=== PATIENT | male | born 1970 | race Caucasian/White ===

== ENCOUNTER 2020-10-10 20:49 | Emergency (ER) | payer BC, SELFPAY ==
--- NOTE | ~2020-10-10 | CT_ITS ---
EXAMINATION: CTA chest DATE: 10/10/2020 22:42 INDICATION: Left chest pain. TECHNIQUE: Computed tomographic angiography (CTA) of the chest was performed with 100 mL Omnipaque-35 0 intravenous contrast. Automated exposure control and iterative reconstruction technique were employ ed. The dose-length product was 731.74 mGy-cm. Maximum intensity projection 3D-reconstructions of the aorta and other arteries were constructed by the technologist on a separate workstation. COMPARISON: None. FINDINGS: There is mild scarring at the lung apices. No pleural effusion. The heart size is normal. N o pericardial effusion. There is a 10 mm cyst in left kidney. There is a small sliding hiatal hernia. Thoracic aorta is normal. There is mild thoracic spondylosis. IMPRESSION: 1. Normal aorta. 2. Small sliding hiatal hernia. Reviewed, dictated and finalized at location A.
--- NOTE | ~2020-10-10 | XR_ITS ---
EXAMINATION: XR chest 2V DATE: 10/10/2020 21:28 INDICATION: Left chest pain radiating to the left arm. TECHNIQUE: Frontal and lateral views of the chest were obtained on 3 radiographs. COMPARISON: None. FINDINGS: There is no pneumonia, pleural effusion, or pneumothorax. The heart size is normal. IMPRESSION: 1. No acute cardiopulmonary disease. Reviewed, dictated and finalized at location A.
--- NOTE | 2020-10-10 21:02 | ECG_ITS ---
Measurements Intervals [place] Rate: 72 P: 52 ME: 160 QRS: 35 QRSD: 109 T: 37 QT: 389 QTc: 426 Interpretive Statements SINUS RHYTHM BASELINE ARTIFACT- I, II, AVR NORMAL ECG Electronically Signed On 10-11-2020 8:04:13 CDT by Juan Hutchins D.O.
[2020-10-10 21:23] VITALS: BP 130/79; PULSE 71; RESP 20; TEMP 36.7; O2SAT 100
[2020-10-10 21:34] LABS: Basophils Absolute Auto 0.05 K/mm3 (0.00-0.10); Basophils Percent Auto 0.8 % (0.0-1.0); Eosinophils Absolute Auto 0.12 K/mm3 (0.02-0.50); Hematocrit 44.1 % (40.0-54.0); Hemoglobin 14.8 g/dL (14.0-18.0); Immature Granulocyte Absolute 0.02 K/mm3 (0.00-0.00); Immature Granulocyte Percent A 0.3 % (0.0-0.0); Lymphocytes Percent Auto 21.9 % (18.0-42.0); Mean Corpuscular HGB Conc 33.6 g/dL (32.0-36.0); Mean Corpuscular Hemoglobin 29.2 pg (27.0-31.0); Mean Corpuscular Volume 87.2 fL (78.0-102.0); Mean Platelet Volume 9.2 fl (8.7-11.0); Monocytes Absolute Auto 0.49 K/mm3 (0.10-0.90); Monocytes Percent Auto 8.3 % (2.0-11.0); Neutrophils Percent Auto 66.7 % (50.0-70.0); Platelet Count Result 261 K/mm3 (150-420); Red Blood Count 5.06 M/mm3 (4.70-6.10); Red Cell Distribution Width 12.1 % (11.6-14.4); White Blood Count 5.9 K/mm3 (4.8-10.8)
[2020-10-10 21:39] VITALS: PULSE 71
[2020-10-10 21:47] LABS: D Dimer 0.19 mg/L (0.19-0.50)
[2020-10-10 21:58] LABS: Alanine Aminotransferase 22 U/L (16-63); Albumin Level 4.2 g/dL (3.4-5.0); Alkaline Phosphatase 58 U/L (46-116); Anion Gap 9 mmol/L (8-16); Aspartate Amino Transferase 13 U/L (15-37); Bilirubin,Total 0.6 mg/dL (0.00-1.00); Blood Urea Nitrogen 12 mg/dL (7-18); Carbon Dioxide 28 mmol/L (21-32); Chloride 102 mmol/L (98-108); Estimated CRCL calculation 80 ml/min; Estimated Glomerular Filt Rate > 60; Glucose 96 mg/dL (70-99); Osmolality Calculated 287 mOsm/kg (285-295); Potassium 3.5 mmol/L (3.5-5.1); Sodium 139 mmol/L (136-145); Total Protein 7.8 g/dL (6.4-8.2); Troponin I 4.3 ng/L (0.00-60.4)
[2020-10-10 21:59] LABS: Magnesium 2.1 mg/dL (1.8-2.4); NT Pro B Type Natriuretic Pept 74 pg/mL (0-125)
[2020-10-10] MEDS: ALPRAZolam (*CRX) 0.5 MG TABLET PO (22:06)
--- NOTE | 2020-10-10 22:21 | PC.NURSE ---
[id number] pt ambulated to bathroom without difficulty no dizziness or lightheadedness pt christina well
[2020-10-10] MEDS: POTASSIUM BICARBONATE 25 MEQ TABEF 50 MEQ PO (22:26)
--- NOTE | 2020-10-10 22:27 | ED.CHESTPAIN ---
HPI - Chest Pain General Chief Complaint: Chest Pain Stated Complaint: AMB Time Seen by Provider: 10/10/20 21:30 Source: patient and family Mode of arrival: ambulatory Limitations: no limitations History of Present Illness HPI narrative: Patient comes in after stating he had felt his heart racing at home when he was in the shower. The heart racing lasted about 3-5 minutes and then this stopped. He lay down after this and felt better. He thought about this and decided to come in. He had some chest heaviness at the time of the palpitations. This lasted only briefly. It was associated with anxiety. Chest discomfort is described as moderately severe more like a heaviness on his chest, lasting about 5 minutes. This spontaneously resolved without intervention. No radiation of discomfort. This was not associated with shortness of breath, nausea or vomiting, or any diaphoresis. No other associated signs or symptoms. MD complaint: chest heaviness Related Data Home Medications Medication Instructions Recorded Confirmed esomeprazole magnesium [Nexium] 20 mg PO DAILY 10/10/20 10/10/20 multivitamin [A To Z Multivitamin] 1 tablet PO DAILY 10/10/20 10/10/20 Allergies Allergy/AdvReac Type Severity Reaction Status Date / Time No Known Allergies Allergy Verified 10/10/20 21:40 Review of Systems Constitutional: Constitutional: Reports no additional constitutional complaints Eyes: Eyes: Reports no additional eye complaints ENT: Reports system reviewed and no additional complaints, except as documented Cardiovascular: Cardiovascular: Reports no additional cardiovascular complaints Respiratory: Respiratory: Reports no additional respiratory complaints Gastrointestinal: Gastrointestinal: Reports no additional gastrointestinal complaints Genitourinary: Genitourinary: Reports no additional male genitourinary complaints Musculoskeletal: Musculoskeletal: Reports no additional musculoskeletal complaints Integumentary/Breasts: Skin/Breast: Reports system reviewed and no additional complaints, except as docu Neurologic: Reports system reviewed and no additional complaints, except as documented Psychiatric: Psychiatric: Reports no additional psychiatric complaints Endocrine: Endocrine: Reports no additional endocrine complaints Hematologic/Lymphatic: Hematologic/Lymphatic: Reports no additional hematologic/lymphatic complaints Allergic/Immunologic: Allergic/Immunologic: Reports no additional allergic/immunologic complaints [facility] Past Medical History Medical History (Updated 10/11/20 @ 01:02 by Mauri Singh MD) Anxiety disorder GERD (gastroesophageal reflux disease) Surgical History Surgical History (Updated 10/11/20 @ 01:02 by Mauri Singh MD) History of tonsillectomy Family History Family History (Updated 10/11/20 @ 01:03 by Mauri Singh MD) Father Lung cancer Social History Social History (Updated 10/11/20 @ 01:05 by Mauri Singh MD) Smokeless tobacco user: chewing tobacco Alcohol use details: beer daily, not in excess Substance use: never Living arrangements: with family Additional occupation/education comments: 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 Gender identity (if verbalized by the patient): Male Sexual Orientation (if Verbalized by the Patient): Straight or Heterosexual Exam Const: General: healthy appearing and no acute distress Orientation/consciousness: patient oriented x3 HENMT: Head: normal to inspection Ears: external ears normal and TM's normal bilaterally General nose exam: Normal external nose present Mouth: Yes Normal oral and palatal mucosa present Throat: posterior oropharynx normal Eyes: Conjunctivae: conjunctivae normal Neck: Neck: normal visual inspection and no lymphadenopathy Chest: Chest palpation & inspection: normal inspection of the chest Resp: Effort & Inspection: normal respiratory effort Auscultation: clear to a
--- NOTE | 2020-10-10 22:30 | PC.NURSE ---
Pt. resting, report received. VSS, ERP in to discuss testing and orders for CT obtained.
[2020-10-11 00:53] LABS: Troponin I 7.4 ng/L (0.00-60.4)
[2020-10-11 00:57] VITALS: BP 122/77; PULSE 67; RESP 20; O2SAT 100
== END 2020-10-11 01:01 | disposition home or self-care (01) ==
PROVIDERS: Emergency Provider Emergency Medicine; PCP Family Medicine
DX: R07.89 Other chest pain (principal)
CPT/HCPCS: 36415; 71046; 71275; 80053; 83735; 83880; 84484; 85025; 85380; 93005; 99283; 99284; A9270; Q9967

== ENCOUNTER 2020-10-12 09:19 | Emergency (ER) | payer BC, SELFPAY ==
[2020-10-12 09:20] VITALS: BP 153/93; PULSE 77; RESP 20; TEMP 36.6; O2SAT 100
--- NOTE | 2020-10-12 09:24 | ED.EYEPROB ---
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 Patient admits to increased stress level, nonsmoker and no significant heart disease in his family. Related Data Home Medications Medication Instructions Recorded Confirmed esomeprazole magnesium [Nexium] 20 mg PO DAILY 10/10/20 10/12/20 multivitamin [A To Z Multivitamin] 1 tablet PO DAILY 10/10/20 10/12/20 Allergies Allergy/AdvReac Type Severity Reaction Status Date / Time No Known Allergies Allergy Verified 10/10/20 21:40 Review of Systems Review of Systems: All systems reviewed & are unremarkable except as noted in HPI and below PMFSH Past Medical History Medical History Anxiety disorder GERD (gastroesophageal reflux disease) Surgical History Surgical History History of tonsillectomy Family History Family History Father Lung cancer Social History Social History Smokeless tobacco user: chewing tobacco Substance use: never Additional occupation/education comments: 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 Gender identity (if verbalized by the patient): Male Exam Const: General: no acute distress Orientation/consciousness: patient oriented x3 HENMT: Head: normal to inspection Eyes: Conjunctivae: conjunctivae normal Pupils: Equal, round and reactive pupils present EOM: EOMs intact bilaterally Neck: Neck: normal visual inspection, no lymphadenopathy and no meningeal signs Chest: Chest palpation & inspection: normal inspection of the chest Resp: Effort & Inspection: normal respiratory effort Auscultation: clear to auscultation bilaterally Cardio: Rate: regular rate Rhythm: regular rhythm GI: GI Palp: Yes Soft to palpation Percussion: Yes normal to percussion Back/Spine/Pelvis: Back: no CVA tenderness Skin: General skin exam: normal color Rashes: no rashes Neuro: General: patient oriented x3 Extrem: General: normal to inspection and no pedal edema Psych: Mental Status: mental status grossly normal Affect: Anxious affect present Course Course Emergency Course: Reassessment of patient after he received some Xanax feels more comfortable currently no chest pain no shortness of breath advise will be sending prescription of Xanax his pharmacy that he can use as needed and advised follow-up with his primary care physician within 1 week. Critical Care Time Critical Care Time Critical Care Time: No Discharge Plan Discharge Clinical Impression: Anxiety Chest pain Qualifiers: Chest pain type: unspecified Qualified Code(s): R07.9 - Chest pain, unspecified Patient Disposition: Home, Self-Care Condition: Stable Instructions: Antibiotic Form, Chest Pain (ED), Anxiety (ED) Additional Instructions: take medicine as prescribed and follow-up with primary care physician within 1 week for further evaluation and treatment. Prescriptions: New alprazolam [Xanax] 0.5 mg tablet 0.5 mg PO BID PRN (Reason: anxiety) Qty: 20 RF: 0 No Action multivitamin [A To Z Multivitamin] Tablet 1 tablet PO DAILY RF: 0 esomeprazole magnesium [Nexium] 20 mg Capsule,Delayed Release(Dr/Ec) 20 mg PO DAILY RF: 0 Follow-up/Referrals: Jai Duvall M.D. [Primary Care Provider] - Time of Dis
--- NOTE | 2020-10-12 09:53 | ECG_ITS ---
Measurements Intervals [place] Rate: 71 P: 28 TN: 153 QRS: 83 QRSD: 112 T: -8 QT: 385 QTc: 419 Interpretive Statements SINUS RHYTHM INTRAVENTRICULAR CONDUCTION DELAY MINIMAL Q WAVES- INFERIOR LEADS ST-T WAVE ABNORMALITY IN INFERIOR LEADS- CONSIDER ISCHEMIA BASELINE WANDER- AVL, AVF ABNORMAL ECG Electronically Signed On 10-12-2020 10:29:40 CDT by Juan Hutchins D.O.
[2020-10-12] MEDS: ALPRAZolam (*CRX) 0.5 MG TABLET PO (10:11)
[2020-10-12 10:30] VITALS: BP 149/93; PULSE 67; RESP 20; O2SAT 99
[2020-10-12 11:05] LABS: Troponin I 4.5 ng/L (0.00-60.4)
[2020-10-12 11:30] VITALS: BP 127/87; PULSE 72; O2SAT 97
== END 2020-10-12 11:30 | disposition home or self-care (01) ==
PROVIDERS: Emergency Provider Emergency Medicine; PCP Family Medicine
DX: F41.9 Anxiety disorder, unspecified (principal); R07.9 Chest pain, unspecified
CPT/HCPCS: 36415; 84484; 93005; 99283; A9270

== ENCOUNTER 2020-10-18 08:50 | Outpatient (CLI) | payer BC, SELFPAY ==
[2020-10-18 10:20] LABS: Anion Gap 8 mmol/L (8-16); Blood Urea Nitrogen 18 mg/dL (7-18); Calcium 9.6 mg/dL (8.5-10.1); Carbon Dioxide 30 mmol/L (21-32); Chloride 105 mmol/L (98-108); Cholesterol 181 mg/dL (0-200); Estimated Glomerular Filt Rate > 60; Glucose 94 mg/dL (70-99); HDL Direct 43 mg/dL (40-60); LDL Cholesterol Calculated 123 mg/dL (<130); Osmolality Calculated 297 mOsm/kg (285-295); Potassium 4.3 mmol/L (3.5-5.1); Sodium 143 mmol/L (136-145); Triglycerides 77 mg/dL (0-150)
== END 2020-10-18 08:51 | disposition home or self-care (01) ==
LOC: CHSLAB 08:52
PROVIDERS: PCP Family Medicine; Visit Provider Family Medicine
DX: Z82.49 Family history of ischemic heart disease and other diseases of the circulatory system (principal)
CPT/HCPCS: 36415; 80048; 80061

== ENCOUNTER 2020-10-20 15:24 | Outpatient (CLI) | payer BC, SELFPAY ==
[2020-10-20 17:07] LABS: Thyroid Stimulating Hormone 1.05 uIU/mL (0.36-3.74)
== END 2020-10-20 15:25 | disposition home or self-care (01) ==
LOC: CHSLAB 15:39
PROVIDERS: PCP Family Medicine
DX: F41.9 Anxiety disorder, unspecified (principal)
CPT/HCPCS: 36415; 84443

== ENCOUNTER 2022-07-24 16:47 | Outpatient (RCR) | payer BC, SELFPAY ==
--- NOTE | 2022-07-29 14:13 | BUPTOPEVAL1 ---
Assessment and note entered by Dieter Calles Evaluation Information Assessment Status Evaluation Diagnosis back pain Onset 07/17/22 Subjective Information Pt. reports that he has had on/off pain for years. he reports that he cannot stand for long periods of time. He notices that he cannot sit in the vehicle for long periods of time. He reports that he does have constant numbness in the right foot. He describes the majority of his pain in the area of the right low back. He has had xray which has revealed a spondylolysthesis. He states that fusion has been suggested in the past. He reports that pain will occasionally wake him at night. He reports that he does have to sleep on the left side to avoid pain. he reports that he can stand for long periods of time on occasion, and other times on short durations. His goal is to reduce his pain. Assessment PT Clinical Summary Pt. enters the clinic with diagnosis of low back pain. He presents with impaired postural awareness, pain and weakness on this date. Pt. has attended therapy in the past and continues to exercise at home. Provided additional core stabilization and trunk mobility training on this date. Continued skilled PT is indicated in order to advance core stability to allow for improved comfort with IADL's. Plan of Care Interventions Neuro Re-education,Therapeutic Activities, Therapeutic Exercise PT Services Indicated Yes Treatment Frequency and 1x/week x 4 visits in order to improve core Duration strength and stability, as well as flexibility. These treatments will address the objective and functional deficits as defined above. The patient will be advanced safely and appropriately in order for the patient to progress towards his/her prior level of function. Additional exercises will be introduced and as well as a comprehensive home exercise program upon discharge, if needed, ?to ensure carryover of functional gains achieved in the clinic. This treatment plan has been reviewed and agreement upon by the patient.
== END 2022-08-14 16:51 | disposition home or self-care (01) ==
LOC: CHSPT 16:47
DX: M54.9 Dorsalgia, unspecified (principal)
CPT/HCPCS: 97110; 97161